=== PATIENT | male | born 1970 | race Caucasian/White ===

== ENCOUNTER 2017-08-25 14:12 | Emergency (ER) | payer SELFPAY ==
[~2017-08-25] VITALS: Ht 175.3 cm; Wt 96.0 kg
[~2017-08-25 14:12] MED LIST: CALC250 PO; CHOL1000 PO; CYCL10TA PO; GABA100C4 PO; GETGO ROLLING W1 MI1; HYDR-3366 PO; PERI PO; WHEEMIS3; XARE10TA PO
[2017-08-25 14:18] VITALS: BP 140/86; PULSE 103; RESP 16; TEMP 97.6; O2SAT 95
[2017-08-25] MEDS ORDERED: MEDR4PAK PO (14:55)
--- NOTE | 2017-08-25 14:55 | PD ---
HPI Chief Complaint: Skin Problem Time Seen by Provider: 14:42 Travel History International Travel<30 days: No Contact w/Intl Traveler<30days: No Traveled to known affect area: No History of Present Illness HPI 47-year-old male presents emergency department for evaluation of a rash that started approximately 1 week ago. Patient states that he was working when he noticed the rash worsen. Says he has been using hydrocortisone cream without significant relief. Since the rash is pruritic and is located on his left lower extremity, crux of right elbow, and left forearm. Patient does not recall being exposed to any environmental allergens. Patient denies new soaps, foods, lotions. Denies fever, chills, nausea, vomiting or diarrhea. Denies pain with this rash. Says he has had this rash before and states that prednisone usually resolves it. PFSH Past Medical History Arthritis: No Asthma: No Autoimmune Disease: No Anxiety: No Depression: No Heart Rhythm Problems: No Cancer: No Cardiovascular Problems: No High Cholesterol: No Chemotherapy: No Chest Pain: No Congestive Heart Failure: No COPD: No Cerebrovascular Accident: No Diabetes: No Diminished Hearing: No Endocrine: No GERD: No Genitourinary: Yes Hiatal Hernia: No Immune Disorder: No Kidney Stones: Yes Musculoskeletal: No Neurologic: No Psychiatric: No Reproductive: No Respiratory: No Immunizations Current: Yes Migraines: No Radiation Therapy: No Renal Failure: No Seizures: No Sickle Cell Disease: No Sleep Apnea: No Thyroid Disease: No Ulcer: No Past Surgical History Abdominal Surgery: No AICD: No Arteriovenous Shunt: No Cardiac Surgery: No Ear Surgery: No Endocrine Surgery: No Eye Surgery: No Genitourinary Surgery: No Gynecologic Surgery: No Insulin Pump: No Joint Replacement: No Oral Surgery: No Pacemaker: No Thoracic Surgery: No Social History Alcohol Use: Yes (rare) Tobacco Use: No Substance Use: No Allergies-Medications (Allergen,Severity, Reaction): Coded Allergies: bee venom protein (honey bee) (Unverified Allergy, Severe, 08/25/17) hornet venom (Unverified Allergy, Severe, Hives, 08/25/17) Reported Meds & Prescriptions Reported Meds & Active Scripts Active Medrol Dosepak (Methylprednisolone) 4 Mg Dspk 4 Mg PO DIRECTED Per Pharmacist direction Review of Systems Except as stated in HPI: all other systems reviewed are Neg Physical Exam Narrative GENERAL: Well-nourished, well-developed patient. SKIN: Focused skin assessment warm/dry. Left anterior sommers-papules over erythematous plaques, pattern appears to be from a contacts allergen of some sort. Right elbow crux-flat 1-2 mm macules line The crux of the elbow approximately 1 cm Left forearm-scattered, few papules with mild erythema. Lymph angiopathic spread, no edema HEAD: Normocephalic. EYES: No scleral icterus. No injection or drainage. NECK: Supple, trachea midline. No JVD or lymphadenopathy. CARDIOVASCULAR: Regular rate and rhythm without murmurs, gallops, or rubs. RESPIRATORY: Breath sounds equal bilaterally. No accessory muscle use. MUSCULOSKELETAL: No cyanosis, or edema. BACK: Nontender without obvious deformity. No CVA tenderness. Data Data Last Documented VS Vital Signs Date Time Temp Pulse Resp B/P (MAP) Pulse Ox O2 Delivery O2 Flow Rate FiO2 08/25/17 14:18 97.6 103 16 140/86 (104) 95 Orders Orders Ed Discharge Order (08/25/17 14:56) [facility] Medical Decision Making Medical Screen Exam Complete: Yes Emergency Medical Condition: Yes Differential Diagnosis Contact dermatitis, herpes zoster, heat rash Narrative Course 47-year-old male presents emergency department for evaluation of a rash that started approximately 1 week ago. Patient states that he was working when he noticed the rash worsen. Says he has been using hydrocortisone cream without significant relief. Since the rash is pruritic and is located on his left lower extremity, crux of right elbow, and left forearm. Patient does not recall being exposed to any environmental allergens. Patient denies new soaps, foods, lotions. Denies fever, chills, nausea, vomiting or diarrhea. Denies pain with this rash. Says he has had this rash before and states that prednisone usually resolves it. Denies chronic medical issues medication use. 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 I suspect that patient has had a contact dermatitis of some sort. The pattern on his left lower extremity indicates that he may have been in contact with the plants. I strongly advised patient to wash thoroughly to avoid spread of this dermatitis. Patient will receive prednisone. Advised to follow-up with primary care physician. Return to the emergency department for worsening or persistent symptoms. Diagnosis Primary Impression: Dermatitis Referrals: [facility] [employer] Additional Instructions: Ensure you go home and rinse your body and wash with soap and water thoroughly to avoid spread of your rash. Recommend following up with the primary care physician and consider dermatology evaluation of this rash. Continue hydrocortisone cream per package instructions for your rash. If your symptoms persist or worsen return to the emergency department. Scripts Methylprednisolone Dosepak (Medrol Dosepak) 4 Mg Dspk 4 MG PO DIRECTED, #1 DSPK 0 Refills Per Pharmacist direction Prov: Raul Ni MD 08/25/17 Disposition: 01 DISCHARGE HOME Condition: Stable Aletha Bowen Aug 25, 2017 14:55
== END 2017-08-25 15:08 | disposition home or self-care (01) ==
LOC: PHEFT 14:12
DX: L30.9 Dermatitis, unspecified (principal); Z87.442 Personal history of urinary calculi
CPT/HCPCS: 99283

== ENCOUNTER 2017-09-01 19:35 | Emergency (ER) | payer SELFPAY ==
[~2017-09-01] VITALS: Ht 175.3 cm; Wt 91.6 kg
[~2017-09-01 19:35] MED LIST changes: -CALC250 PO; -CHOL1000 PO; -CYCL10TA PO; -GABA100C4 PO; -GETGO ROLLING W1 MI1; -HYDR-3366 PO; +MEDR4PAK PO; -PERI PO; -WHEEMIS3; -XARE10TA PO
[2017-09-01 19:42] VITALS: BP 142/93; PULSE 88; RESP 18; TEMP 98.3; O2SAT 98
--- NOTE | 2017-09-01 19:56 | PD ---
HPI Chief Complaint: Skin Problem Time Seen by Provider: 19:45 Travel History International Travel<30 days: No Contact w/Intl Traveler<30days: No Traveled to known affect area: No History of Present Illness HPI 47-year-old male presents emergency department for evaluation left upper tooth pain started a couple days ago. Says that he cracked his tooth last week and developed instant pain. Patient says that pressure and temperature increases pain and nothing seems to relieve his pain. Says that his pain is mild to moderate when it is present. Says he has occasional shooting pain. In addition , patient states that he has been taking the Medrol Dosepak however, the rash on left his leg is persistent, although decreased in size. Says the rash on his upper extremities has resolved but the left lower extremity has not completely resolved. Says he has been washing the site and has been following instructions as given here previously. He denies any new exposures to the area. He denies new soaps or lotions. He denies fevers or chills. He does suspect that his food may be contaminated or tampered with as he lives with multiple other adults and they share a refrigerator. [facility] Past Medical History Arthritis: No Asthma: No Autoimmune Disease: No Anxiety: No Depression: No Heart Rhythm Problems: No Cancer: No Cardiovascular Problems: No High Cholesterol: No Chemotherapy: No Chest Pain: No Congestive Heart Failure: No COPD: No Cerebrovascular Accident: No Diabetes: No Diminished Hearing: No Endocrine: No GERD: No Genitourinary: Yes Hiatal Hernia: No Immune Disorder: No Kidney Stones: Yes Musculoskeletal: No Neurologic: No Psychiatric: No Reproductive: No Respiratory: No Immunizations Current: Yes Migraines: No Radiation Therapy: No Renal Failure: No Seizures: No Sickle Cell Disease: No Sleep Apnea: No Thyroid Disease: No Ulcer: No Past Surgical History Abdominal Surgery: No AICD: No Arteriovenous Shunt: No Cardiac Surgery: No Ear Surgery: No Endocrine Surgery: No Eye Surgery: No Genitourinary Surgery: No Gynecologic Surgery: No Insulin Pump: No Joint Replacement: No Oral Surgery: No Pacemaker: No Thoracic Surgery: No Social History Alcohol Use: Yes (rare) Tobacco Use: No Substance Use: No Allergies-Medications (Allergen,Severity, Reaction): Coded Allergies: bee venom protein (honey bee) (Unverified Allergy, Severe, 09/01/17) hornet venom (Unverified Allergy, Severe, Hives, 09/01/17) Reported Meds & Prescriptions Reported Meds & Active Scripts Active No Active Prescriptions or Reported Medications Review of Systems Except as stated in HPI: all other systems reviewed are Neg Physical Exam Narrative GENERAL: Well-nourished, well-developed patient. SKIN: Focused skin assessment warm/dry. Left lower extremity-obvious excoriation without significant edema, erythema or lymph angiopathic spread. Scattered papules present in linear form HEAD: Normocephalic. EYES: No scleral icterus. No injection or drainage. Poor dentition, cuspid appears fractured although this appears like an old injury at the tooth appears eroded. The gingiva appears pink without exudate or erythema. NECK: Supple, trachea midline. No JVD or lymphadenopathy. CARDIOVASCULAR: Regular rate and rhythm without murmurs, gallops, or rubs. RESPIRATORY: Breath sounds equal bilaterally. No accessory muscle use. GASTROINTESTINAL: Abdomen soft, non-tender, nondistended. MUSCULOSKELETAL: No cyanosis, or edema. BACK: Nontender without obvious deformity. No CVA tenderness. Data Data Last Documented VS Vital Signs Date Time Temp Pulse Resp B/P (MAP) Pulse Ox O2 Delivery O2 Flow Rate FiO2 09/01/17 19:42 98.3 88 18 142/93 (109) 98 Orders Orders Ed Discharge Order (09/01/17 19:59) MDM Medical Decision Making Medical Screen Exam Complete: Yes Emergency Medical Condition: Yes Differential Diagnosis Nonspecific rash, tooth fracture, dental infection, abscess Narrative Course 47-year-old male presents emergency department for evaluation of a recurrent, persistent rash to his left lower extremity and a tooth fracture that occurred last week. Patient says that he took the Medrol Dosepak and has not been performing his yard work as normal, in order to resolve this rash. He denies any new exposures soaps or detergents with this rash. Says that previously he required 2 treatments before resolution of his rash but cannot remember the name or type of treatment this was. Vital signs are stable. His exam findings consistent with a tooth fracture, although older appearing and left lower extremity rash, in a linear form. Patient received Magic mouthwash and Pen-VK. He is instructed not to use Pen- VK unless his gingiva or tooth becomes more inflamed, swollen, red. I suspect that he does not have good follow-up with primary care physician and do not want patient to worsen for lack of resources. He is instructed to follow dermatology as he needs further evaluation of this rash. Says he has used hydrocortisone and other [id number] creams without resolution. In addition, says that this is recurrent and says he has completed a Medrol Dosepak without complete resolution. I do not believe this is an emergency and requires any further treatment from me. Patient should follow-up with a dentist as well for further evaluation of this tooth. He should follow-up with his primary care physician for further treatment and evaluation. Return to the ED for worsening or persistent symptoms. As patient was being discharged, patient requested a second opinion as he insisted on having another dose of Medrol Dosepak. I discussed this case with Dr. Guerrero and she graciously evaluated the patient as well. She agrees that patient should follow up with his PCP and dermatology. Diagnosis Primary Impression: Rash Additional Impression: Fracture, tooth Qualified Codes: S02.5XXA - Fracture of tooth (traumatic), initial encounter for closed fracture Referrals: [facility] [employer] Additional Instructions: Follow-up with a marine rigger as discussed. He may need further evaluation by biopsy or otherwise for treatment. If your tooth pain increases, he developed swelling or redness start antibiotics. May use the mouth rinse for pain as directed. Follow-up with the primary care physician this week for further evaluation. Follow-up with a dentist for further evaluation regarding her tooth as well. Scripts No Active Prescriptions or Reported Meds Disposition: 01 DISCHARGE HOME Condition: Stable Aletha Bowen Sep 01, 2017 19:56
[2017-09-01] MEDS ORDERED: PENI500T PO (19:57)
[2017-09-01] MEDS ORDERED: MAGICPED SWISH-SPIT (19:57)
--- NOTE | 2017-09-01 20:41 | PD ---
Physical Exam Date Seen by Provider: Sep 01, 2017 Narrative I was asked to see this patient by fast track because the patient wanted a second opinion. He was initially evaluated by the PA. The patient comes in with a recurrent rash on his left sommers. He was seen for the same thing last week and given a Medrol Dosepak. He comes back today requesting a refill on his Medrol Dosepak. He states that his rash is markedly improved compared to last week. The patient goes on to state that he does not want to see a specialist for the rash because the specialist might find out what the poison is that is causing the rash. He states that that information would allow the people who are poisoning him to "finish the job." He believes that he is being poisoned. Data Data Last Documented VS Vital Signs Date Time Temp Pulse Resp B/P (MAP) Pulse Ox O2 Delivery O2 Flow Rate FiO2 09/01/17 19:42 98.3 88 18 142/93 (109) 98 Orders Orders Ed Discharge Order (09/01/17 19:59) MDM Supervised Visit with HAMZAH: Yes Narrative Course I, Dr. Guerrero, have reviewed the advance practice practitioner's documentation and am in agreement, met with the patient face to face, made the diagnosis, and the medical decision making was done by me. *My assessment and Findings: This patient obviously has some sort of thought disorder. He has a very benign appearing rash on his left sommers. He shows me a picture from last week and the rash is markedly improved compared to the picture from last week. I have told the patient that I agree with the PA in that he should follow-up with a airplane inspector. Please see Aletha Bowen PA-C's note for further details, lab and radiology results, final diagnosis and disposition. Diagnosis Primary Impression: Rash Additional Impression: Fracture, tooth Qualified Codes: S02.5XXA - Fracture of tooth (traumatic), initial encounter for closed fracture Referrals: [facility] call for appointment Dentist call for appointment Oil Dipper call for appointment Patient Instructions: General Instructions, Penicillin V (By mouth), Acute Rash (ED), Acute Dental Trauma (ED) Departure Forms: Tests/Procedures Additional Instruction: Follow-up with a airplane inspector as discussed. He may need further evaluation by biopsy or otherwise for treatment. If your tooth pain increases, he developed swelling or redness start antibiotics. May use the mouth rinse for pain as directed. Follow-up with the primary care physician this week for further evaluation. Follow-up with a dentist for further evaluation regarding her tooth as well. Scripts No Active Prescriptions or Reported Meds Disposition: 01 DISCHARGE HOME Condition: Stable Ioana Guerrero MD Sep 01, 2017 20:40
== END 2017-09-01 20:44 | disposition home or self-care (01) ==
LOC: PHEFT 19:35
DX: R21 Rash and other nonspecific skin eruption (principal); S02.5XXA Fracture of tooth (traumatic), initial encounter for closed fracture; Z87.442 Personal history of urinary calculi; X58.XXXA Exposure to other specified factors, initial encounter
CPT/HCPCS: 99282